=== PATIENT | male | born 1945 | race Caucasian/White ===

== ENCOUNTER 2019-09-01 18:25 | Inpatient (IN) | payer MEDICARE, MEDICAID, SELFPAY ==
[2019-09-01] VITALS (7 sets, daily range): BP systolic 123–164; BP diastolic 66–90; PULSE 66–84; RESP 14–24; TEMP 37.4–37.8; O2SAT 95–99; BMI 24.0
--- NOTE | ~2019-09-01 | US_ITS ---
EXAMINATION:US venous doppler LE INDICATION:Lower extremity swelling and pain. Elevated d-dimer. TECHNIQUE: Multiple grayscale, color flow and Doppler images of the lower extremity deep venous syste ms were obtained and reviewed. COMPARISON:No prior studies for comparison. FINDINGS: The right common femoral, superficial femoral and popliteal veins demonstrate normal respir atory variation, augmentation and compressibility. Color flow is also seen within the posterior tibi al, peroneal, greater saphenous and profunda veins. There is deep venous thrombosis of the left common femoral and profunda femoral veins. IMPRESSION: 1: Deep venous thrombosis of the left common and profunda femoral veins. Dr. Chapo Sage discussed with the patient's nurse on [facility], Tawnya, at 09/04/2019 12:57 CDT. Reviewed, dictated and finalized at location A. IMPRESSION: 1: Deep venous thrombosis of the left common and profunda femoral veins. Dr. Chapo Sage discussed with the patient's nurse on [facility], Steph e, at 09/04/2019 12:57 CDT.
--- NOTE | ~2019-09-01 | CT_ITS ---
EXAMINATION: CT brain wo con DATE: 09/01/2019 19:12 INDICATION: Altered mental status TECHNIQUE: Computed tomography (CT) of the head was performed without intravenous contrast. Sagittal and coronal reconstructions were performed. The mA was adjusted according to patient size. Iterative reconstruction technique was employed. The dose-length product was 681.00 mGy-cm. COMPARISON: None FINDINGS: Postoperative change of prior left frontotemporal craniotomy with plate and screw fixations. Moderate -sized regions of encephalomalacia in the left and right frontal lobes and right cerebellar hemispher e consistent with chronic infarcts. Additional small cortical infarct in the left parietal lobe. Oliverio tional small old lacunar infarcts in the right frontal lobe long radiata and caudate nucleus as wel l as at the central isabel. No acute intracranial hemorrhage, acute infarction or abnormal extra axial fluid collection. There is moderate scattered white matter hypoattenuation consistent with chronic sm all vessel ischemic disease. Symmetric prominence of the sulci and ventricles consistent with mild ag e-appropriate diffuse cerebral volume loss. No mass/mass effect. The orbits, paranasal sinuses and ma stoid air cells are normal. IMPRESSION: 1. No acute intracranial process. 2. Multiple old infarcts including at the bilateral frontal lobes, left parietal lobe, right basal ga nglia, central isabel and right cerebellum. 3. Postoperative change of prior left frontotemporal craniotomy. 4. Age-related changes including mild diffuse volume loss and moderate scattered white matter hypoatt enuation consistent with chronic small vessel ischemic disease. Reviewed, dictated and finalized at location A. IMPRESSION: 1. No acute intracranial process. 2. Multiple old infarcts including at the bilateral frontal lobes, left parieta l lobe, right basal ganglia, central isabel and right cerebellum. 3. Postoperative change of prior left frontotemporal craniotomy. 4. Age-related changes including mild diffuse volume loss and moderate scattere d white matter hypoattenuation consistent with chronic small vessel ischemic di sease.
--- NOTE | ~2019-09-01 | XR_ITS ---
EXAMINATION: XR chest 1V portable DATE: 09/01/2019 19:31 INDICATION: Altered mental status TECHNIQUE: frontal view of the chest was obtained. COMPARISON: None FINDINGS: Mild opacities in the left lower lung zone and the lateral right midlung zone which could represent a telectasis, pneumonia or mild pulmonary edema. No pleural effusion or pneumothorax. Arch size is norm al. Prominent hypertrophic change at the bilateral anterior first ribs. IMPRESSION: 1. Mild opacities in the right mid and left lower lung zones which could represent atelectasis, pneum onia or mild pulmonary edema. Reviewed, dictated and finalized at location A. IMPRESSION: 1. Mild opacities in the right mid and left lower lung zones which could repres ent atelectasis, pneumonia or mild pulmonary edema.
--- NOTE | 2019-09-01 18:40 | ECG_ITS ---
Measurements Intervals [place] Rate: 71 P: 38 [place]: 168 QRS: 18 QRSD: 83 T: 199 QT: 405 QTc: 441 Interpretive Statements SINUS RHYTHM RSR' IN V1 OR V2, CONSIDER RIGHT VENTRICULAR HYPERTROPHY OR RIGHT VCD BASELINE ARTIFACT- I, II, AVR, AVL, AVF, V1-V6 BORDERLINE ECG Electronically Signed On 09-02-2019 6:56:02 CDT by Fernando Garcia D.O.
--- NOTE | 2019-09-01 18:43 | ED.GENADULT ---
HPI - General Adult General Chief complaint: Unspecified Stated complaint: failure to thrive Time Seen by Provider: 09/01/19 18:27 History of Present Illness HPI narrative: Patient is a 74 y/o male sent from [place] for decreased activity, eating less for approximately 1 week. There is no know alleviating or exacerbating factor. Patient usually walks around at the facility, laughs and makes jokes. Patient has been laying in bed most of the time during last few days. Patient is poor historian. He does not know why he is here. He denies any pain, SOB or any other complaint. He states that he feels fine. Related Data Allergies Allergy/AdvReac Type Severity Reaction Status Date / Time Penicillins Allergy Unknown Verified 09/01/19 20:23 Review of Systems Review of Systems: ROS unobtainable: Yes unobtainable due to mental status [facility] Social History Social History Gender identity (if verbalized by the patient): Male Exam Const: General: no acute distress and well developed Orientation/consciousness: oriented to person, oriented to place, oriented to time and patient oriented x3 HENMT: Head: normocephalic Ears: external ears normal General nose exam: Normal external nose present Eyes: General: appearance normal, both eyes and all related structures Conjunctivae: conjunctivae normal Neck: Neck: normal visual inspection and full ROM Chest: Chest palpation & inspection: normal inspection of the chest and no tenderness Resp: Effort & Inspection: normal respiratory effort Auscultation: clear to auscultation bilaterally Cardio: Rate: regular rate Rhythm: regular rhythm GI: GI Palp: No abdominal tenderness and Yes Soft to palpation Skin: General skin exam: normal color and turgor normal Neuro: General: oriented to person and other (disoriented, confused) Cognition (Neuro): abnormal cognition (slow to repsond, but able to follow simple commands) Motor exam (neuro): 5/5 motor strength present throughout Extrem: General: normal to inspection, full ROM and no pedal edema Psych: Appearance: grossly normal Mental Status: mental status grossly normal Affect: normal affect Course Consultations Consultation #1: Discussed with Dr. Zapata, who agrees to admit and recommends starting Rocephin and Zithromax for possible community acquired pneumonia. Date: 09/01/19 Time: 20:30 Vital Signs Vital signs: Vital Signs Temperature 37.6 C H 09/01/19 18:35 Pulse Rate 69 09/01/19 18:35 Respiratory Rate 14 09/01/19 18:35 Blood Pressure 164/79 H 09/01/19 18:35 Pulse Oximetry 99 09/01/19 18:35 Temperature 37.6 C H 09/01/19 18:35 Pulse Rate 84 09/01/19 19:14 Respiratory Rate 14 09/01/19 18:35 Blood Pressure 164/79 H 09/01/19 18:35 Pulse Oximetry 99 09/01/19 18:35 Medical Decision Making Vital Signs Vital Signs: Vital Signs Temperature 37.6 C H 09/01/19 18:35 Pulse Rate 69 09/01/19 18:35 Respiratory Rate 14 09/01/19 18:35 Blood Pressure 164/79 H 09/01/19 18:35 Pulse Oximetry 99 09/01/19 18:35 Temperature 37.6 C H 09/01/19 18:35 Pulse Rate 84 09/01/19 19:14 Respiratory Rate 14 09/01/19 18:35 Blood Pressure 164/79 H 09/01/19 18:35 Pulse Oximetry 99 09/01/19 18:35 Lab Data Result diagrams: 09/01/19 18:59 09/01/19 18:59 Labs: Lab Results 09/01/19 09/01/19 09/01/19 Range/Units 18:59 18:59 19:43 WBC 4.6 (4.5-10.0) K/mm3 RBC 5.25 (4.6-6.20) M/mm3 Hgb 14.8 (14.0-18.0) g/dL Hct 44.4 (42.0-52.0) % MCV 84.6 (80-100) fl MCH 28.2 (26-34) pg MCHC 33.3 (32-36) g/dl RDW 12.2 (11.5-14.5) % Plt Count 192 (150-375) k/mm3 MPV 9.0 (7.4-10.4) fl Immature Gran % (Auto) 0.9 H (0-0.5) % Neut % (Auto) 74.4 H (45.5-73.1) % Lymph % (Auto) 13.9 L (18.3-44.2) % [place] % (Auto) 10.4 H (2.6-8.5) % Eos % (Auto) 0.2 (0-4.4) % Baso %
[2019-09-01 19:06] LABS: Basophils Percent Auto 0.2 % (0.2-1.2); Eosinophils Percent Auto 0.2 % (0-4.4); Hematocrit 44.4 % (42.0-52.0); Hemoglobin 14.8 g/dL (14.0-18.0); Immature Granulocyte Absolute 0.04 K/mm3 (0.00-0.031); Immature Granulocyte Percent A 0.9 % (0-0.5); Lymphocytes Absolute Auto 0.64 K/mm3 (0.9-3.2); Lymphocytes Percent Auto 13.9 % (18.3-44.2); Mean Corpuscular HGB Conc 33.3 g/dl (32-36); Mean Corpuscular Hemoglobin 28.2 pg (26-34); Mean Corpuscular Volume 84.6 fl (80-100); Monocytes Absolute Auto 0.5 K/mm3 (0.1-0.6); Monocytes Percent Auto 10.4 % (2.6-8.5); Neutrophils Absolute Auto 3.4 K/mm3 (1.3-6.7); Neutrophils Percent Auto 74.4 % (45.5-73.1); Platelet Count Result 192 k/mm3 (150-375); Red Blood Count 5.25 M/mm3 (4.6-6.20); Red Cell Distribution Width 12.2 % (11.5-14.5); White Blood Count 4.6 K/mm3 (4.5-10.0)
[2019-09-01 19:18] LABS: Alanine Aminotransferase 19 U/L (4-50); Albumin Level 4.5 g/dL (3.5-5.1); Alkaline Phosphatase 108 U/L (38-126); Aspartate Amino Transferase 33 U/L (17-59); Bilirubin,Total 0.7 mg/dL (0.2-1.3); Blood Urea Nitrogen 17 mg/dL (9-20); Calcium 9.9 mg/dL (8.4-10.2); Carbon Dioxide 26 mmol/L (22-30); Chloride 101 mmol/L (98-107); Estimated Glomerular Filt Rate > 60; Glucose 123 mg/dL (75-110); Sodium 135 mmol/L (137-145)
[2019-09-01 19:55] LABS: Add Urine Microscopic? YES; Amorphous Sediment Urine Few; Appearance Urine Clear (Clear); Bacteria Urine Trace /hpf; Bilirubin Urine Negative (Negative); Blood Urine Negative (Negative); Color Urine Yellow (Yellow); Glucose Urine UA Negative (Negative); Ketones Urine Trace mg/dL (Negative); Leukocyte Esterase Ur Negative LEU/UL (Negative); Mucus Urine Heavy /lpf; Nitrate Urine Negative (Negative); Protein Urine 2+ mg/dL (Negative); RBC Urine 0-2 /hpf (0-2); Squamous Epithelial Cell Urine Rare /hpf (Few)
[2019-09-01 19:56] LABS: Specific Grav Ur 1.033 (1.001-1.035)
[2019-09-01] MEDS: SODIUM CHLORIDE 0.9% IV 1,000 ML 999 ML IV CONT (20:23)
[2019-09-01 20:36] LABS: Lactic Acid Reflex 1.1 mmol/L (0.7-2.1)
[2019-09-01 20:39] LABS: CRP 5.2 mg/dL (<1.0); Lactate Dehydrogenase 505 U/L (313-618)
--- NOTE | 2019-09-01 22:24 | ADMGEN ---
This patient, Elicia Patterson, was admitted to 3 [facility] Surg Room 333-01. Patient/family oriented to hospital policies and general routines including ID bracelet, bed and alarms, visiting hours, pain management, procedures, bathroom and other care routines, personal items, smoking policy, room service/diet, and visiting hours. Valuables list has been completed. Information on how to activate the Rapid Response Team has been discussed. Patient/Family are encouraged to report perceived risks to care and to ask questions if they do not understand what they are told or what they should do.
[2019-09-02] VITALS (15 sets, daily range): BP systolic 127–151; BP diastolic 63–77; PULSE 57–75; RESP 16–20; TEMP 36.4–37.1; O2SAT 92–98; BMI 24.0
--- NOTE | 2019-09-02 06:14 | PM.IMHP ---
H&P: HPI History of Present Illness Chief complaint: Failure to thrive Narrative: Date and time of patient contact: 09/02/2019 at 6:30 a.m. Elicia Patterson is a 74 year old male with a past medical history of CVA, dementia, and prior craniotomy who presented to the ER from [facility] via EMS due to not acting like himself for the past week. The patient had not been eating or drinking very much. The patient was not moving around as much as usual either. The patient usually walks around the facility and laughs and makes jokes with staff. Instead he has been staying in bed for the last few days. The patient only states that he feels ?fine.? The patient was febrile on presentation to the ER with a temperature of 100.1?. The patient denies any cough, congestion, pain, shortness of breath, or other complaints. However the patient is only oriented to person. He thinks that he is around 35 years old. History is limited due to the patient's dementia. Source of information is EMS report and skilled nursing records. Review of Systems Review of Systems: ROS unobtainable: Yes unobtainable due to medical condition and unobtainable due to mental status PMFSH Past Medical History Medical History (Updated 09/02/19 @ 07:52 by Eden Zapata DO) Alcoholism /alcohol abuse Atrial fibrillation CVA (cerebral vascular accident) Dementia Hyperlipidemia Seizure disorder Traumatic brain injury Vitamin D deficiency Surgical History Surgical History (Updated 09/02/19 @ 06:15 by Eden Zapata DO) History of craniotomy Family History Family History (Updated 09/02/19 @ 06:27 by Eden Zapata DO) Other Unknown family medical history Social History Social History (Updated 09/02/19 @ 07:53 by Eden Zapata DO) Smoking status: Former smoker Alcohol intake: former Substance use: unknown Living arrangements: skilled nursing Additional living arrangements comments: [facility] Gender identity (if verbalized by the patient): Male Spiritual care concerns: No Meds Home Medications and Allergies Home Medications Medication Instructions Recorded Confirmed Type aspirin 81 mg PO DAILY 09/01/19 09/01/19 History atorvastatin 20 mg PO HS 09/01/19 09/01/19 History cholecalciferol (vitamin D3) 25 mcg PO DAILY 09/01/19 09/01/19 History [Vitamin D3] donepezil 10 mg PO DAILY 09/01/19 09/01/19 History levetiracetam 250 mg PO QNOON 09/01/19 09/01/19 History levetiracetam 500 mg PO BID 09/01/19 09/01/19 History meloxicam 15 mg PO DAILY 09/01/19 09/01/19 History memantine 10 mg PO BID 09/01/19 09/01/19 History thiamine HCl (vitamin B1) 100 mg PO DAILY 09/01/19 09/01/19 History Allergies Allergy/AdvReac Type Severity Reaction Status Date / Time Penicillins Allergy Unknown Verified 09/01/19 20:23 Vital Signs Vital Signs - 24 hr 09/01/19 18:35 09/01/19 19:14 09/01/19 19:45 Temperature 99.7 F H Pulse Rate 69 84 66 Respiratory Rate 14 24 H Blood Pressure 164/79 H 145/72 H Pulse Oximetry 99 99 09/01/19 21:01 09/01/19 21:40 09/01/19 21:55 Temperature 100.1 F H 99.3 F Pulse Rate 72 67 72 Respiratory Rate 21 H 20 16 Blood Pressure 149/90 H 141/76 H 123/66 Pulse Oximetry 97 95 99 09/01/19 23:00 09/02/19 00:31 09/02/19 01:35 Temperature Pulse Rate 71 Respiratory Rate Blood Pressure Pulse Oximetry 99 98 09/02/19 02:00 09/02/19 04:00 Temperature 98.4 F Pulse Rate 69 70 Respiratory Rate 20 Blood Pressure 137/63 Pulse Oximetry 97 Exam Narrative: Exam Narrative: PHYSICAL EXAM: WEIGHT 76.2 kg BMI 24.1 General: Well-developed well-nourished, no acute distress HEENT: Mucous membranes are moist, further or exam not done as the patient would not cooperate with opening his mouth, evidence of prior skull trauma with irregularity to the frontal portion of the skull with old scarring, nares patent, pupils are equal and reactive
[2019-09-02 06:44] LABS: Hematocrit 39.9 % (42.0-52.0); Hemoglobin 13.1 g/dL (14.0-18.0); Mean Corpuscular HGB Conc 32.8 g/dl (32-36); Mean Corpuscular Hemoglobin 28.1 pg (26-34); Mean Corpuscular Volume 85.4 fl (80-100); Platelet Count Result 185 k/mm3 (150-375); Red Blood Count 4.67 M/mm3 (4.6-6.20); Red Cell Distribution Width 12.1 % (11.5-14.5); White Blood Count 4.4 K/mm3 (4.5-10.0)
[2019-09-02 06:59] LABS: Blood Urea Nitrogen 12 mg/dL (9-20); Calcium 9.1 mg/dL (8.4-10.2); Carbon Dioxide 28 mmol/L (22-30); Chloride 103 mmol/L (98-107); Estimated CRCL calculation 67 ml/min; Estimated Glomerular Filt Rate > 60; Glucose 96 mg/dL (75-110); Potassium 3.8 mmol/L (3.4-5.0); Sodium 136 mmol/L (137-145)
[2019-09-02] MEDS: ASPIRIN 81 MG CHEWABLE TABLET PO (08:01)
[2019-09-02] MEDS: levETIRAcetam 500 MG TABLET PO ×2 (08:01→17:22)
[2019-09-02] MEDS: MEMANTINE 10 MG TABLET PO ×2 (08:01→17:22)
[2019-09-02] MEDS: MELOXICAM 7.5 MG TABLET 15 MG PO (08:02)
[2019-09-02] MEDS: ENOXAPARIN 40 MG/0.4 ML SYRINGE SUB-Q (08:02)
[2019-09-02] MEDS: THIAMINE HCL 100 MG TABLET PO (08:03)
[2019-09-02] MEDS: levETIRAcetam 250 MG TABLET PO (11:40)
[2019-09-02 12:46] LABS: SARS-CoV-2 RNA PCR Positive
--- NOTE | 2019-09-02 13:23 | PM.IMPN ---
Progress Note: A&P Assessment and Plan (1) Pneumonia: Qualifiers: Laterality: bilateral Lung location: unspecified part of lung Pneumonia type: due to unspecified organism Qualified Code(s): J18.9 - Pneumonia, unspecified organism Code(s): J18.9 - Pneumonia, unspecified organism Status: Acute Assessment and Plan: COVID testing came back positive today. Likely pneumonia is viral (COVID) in nature with less likely bacterial co-infection. Patient is currently satting in upper 90s on RA. Afebrile since yesterday evening. VSS. BCx pending. Urine Legionella and pneumococcal antigen. Since COVID testing positive, bacterial co-infection unlikely, will stop azithromycin and rocephin Supportive care with Tylenol and Mucinex O2 if needed Will monitor and consider discharge in 1-2 days if continued to be stable (2) COVID-19 virus infection: Code(s): U07.1 - COVID-19 Status: Acute Assessment and Plan: Covid positive. please see above a/p (3) Altered mental status: Qualifiers: Altered mental status type: unspecified Qualified Code(s): R41.82 - Altered mental status, unspecified Code(s): R41.82 - Altered mental status, unspecified Status: Acute Assessment and Plan: Encephalopathy complicating underlying dementia. Likely due to acute infection. Will treat underlying infection with supportive care as above and continue to monitor Will do PT/OT tomorrow Encourage PO intake (4) CVA (cerebral vascular accident): Code(s): I63.9 - Cerebral infarction, unspecified Status: Acute Assessment and Plan: H/o CVA. Continue ASA PT/OT during stay (5) Seizure disorder: Code(s): G40.909 - Epilepsy, unspecified, not intractable, without status epilepticus Status: Acute Assessment and Plan: No acute issues Continue home Keppra (6) Dementia: Code(s): F03.90 - Unspecified dementia without behavioral disturbance Status: Acute Assessment and Plan: Will continue with memantine Hold Donepezil for now, will continue if mental status improves (7) Hyperlipidemia: Code(s): E78.5 - Hyperlipidemia, unspecified Status: Acute Assessment and Plan: LFTs WNL will resume statin Subjective Date/time seen: 09/02/19 13:23 Interval history: Patient is a 74 yo M with history of CVA, dementia, and prior craniotomy who is here for treatment of PNA/Covid infection. Patient is poor historian. For me he is awake, but only nods his head yes/no to questions. He refuses to answer orientation questions for me. Having said that, when questioned, he reports lack of appetite, and denies f/c/s, headaches, dizziness, lightheadedness, cp/palpitations, sob/cough, n/v, abd pain, dysuria, hematuria, cloudy urine, calf pain/swelling. Review of Systems Review of Systems: ROS unobtainable: Yes unobtainable due to medical condition and unobtainable due to mental status Exam Narrative: Exam Narrative: Patient is lying in semi-davis's position at time of visit. Watching tv with lunch sitting in front of him Const: General: cooperative, comfortable, no acute distress, well developed, alert, tired appearing and other (Withdrawn) Nutritional Appearance: well nourished HENMT: Head: atraumatic General nose exam: Normal nares present Face and sinus: face symmetric Eyes: General: appearance normal, both eyes and all related structures EOM: EOMs intact bilaterally Neck: Neck: trachea midline and supple Resp: Effort & Inspection: normal respiratory effort Auscultation: crackles on the right at the base Cardio: Rate: regular rate Rhythm: regular rhythm Heart
[2019-09-02] MEDS: ATORVASTATIN 20 MG TABLET PO (20:34)
[2019-09-03] VITALS (9 sets, daily range): BP systolic 115–157; BP diastolic 59–82; PULSE 51–75; RESP 16–18; TEMP 36.6–37.4; O2SAT 94–97
[2019-09-03 06:21] LABS: Hematocrit 37.6 % (42.0-52.0); Hemoglobin 12.6 g/dL (14.0-18.0); Immature Granulocyte Absolute 0.03 K/mm3 (0.00-0.031); Immature Granulocyte Percent A 0.6 % (0-0.5); Lymphocytes Percent Auto 13.8 % (18.3-44.2); Mean Corpuscular HGB Conc 33.5 g/dl (32-36); Mean Corpuscular Hemoglobin 27.6 pg (26-34); Mean Corpuscular Volume 82.3 fl (80-100); Mean Platelet Volume 8.9 fl (7.4-10.4); Monocytes Absolute Auto 0.4 K/mm3 (0.1-0.6); Monocytes Percent Auto 8.1 % (2.6-8.5); Neutrophils Absolute Auto 3.9 K/mm3 (1.3-6.7); Neutrophils Percent Auto 77.5 % (45.5-73.1); Platelet Count Result 193 k/mm3 (150-375); Red Blood Count 4.57 M/mm3 (4.6-6.20); Red Cell Distribution Width 11.7 % (11.5-14.5); White Blood Count 5.1 K/mm3 (4.5-10.0)
[2019-09-03 06:38] LABS: INR 1.1; Prothrombin Time 14.2 Seconds (11.1-14.7)
[2019-09-03 06:41] LABS: D Dimer 2.32 ug/mL (<0.48); Potassium 3.8 mmol/L (3.4-5.0)
[2019-09-03 06:45] LABS: Alanine Aminotransferase 15 U/L (4-50); Albumin Level 3.7 g/dL (3.5-5.1); Alkaline Phosphatase 93 U/L (38-126); Aspartate Amino Transferase 26 U/L (17-59); Bilirubin,Total 0.6 mg/dL (0.2-1.3); Blood Urea Nitrogen 12 mg/dL (9-20); CRP 7.8 mg/dL (<1.0); Calcium 9.3 mg/dL (8.4-10.2); Carbon Dioxide 26 mmol/L (22-30); Chloride 100 mmol/L (98-107); Estimated CRCL calculation 75 ml/min; Estimated Glomerular Filt Rate > 60; Glucose 108 mg/dL (75-110); Lactate Dehydrogenase 550 U/L (313-618); Magnesium 2.1 mg/dL (1.6-2.3); Sodium 133 mmol/L (137-145)
[2019-09-03] MEDS: MEMANTINE 10 MG TABLET PO ×2 (08:35→17:37)
[2019-09-03] MEDS: THIAMINE HCL 100 MG TABLET PO (08:35)
[2019-09-03] MEDS: ASPIRIN 81 MG CHEWABLE TABLET PO (08:35)
[2019-09-03] MEDS: levETIRAcetam 500 MG TABLET PO ×2 (08:36→17:38)
[2019-09-03] MEDS: CHOLECALCIFEROL 1,000 UNIT TABLET 1000 UNITS PO (08:37)
[2019-09-03] MEDS: levETIRAcetam 250 MG TABLET PO (11:33)
--- NOTE | 2019-09-03 12:30 | PM.IMPN ---
Progress Note: A&P Assessment and Plan (1) Pneumonia: Qualifiers: Laterality: bilateral Lung location: unspecified part of lung Pneumonia type: due to unspecified organism Qualified Code(s): J18.9 - Pneumonia, unspecified organism Code(s): J18.9 - Pneumonia, unspecified organism Status: Acute Assessment and Plan: COVID testing positive. Likely pneumonia is viral (COVID) in nature with less likely bacterial co-infection. Patient is currently satting in mid 90s on RA. Afebrile since presentation. VSS. BCx negative to date. Urine Legionella and pneumococcal antigen pending. Patient much more alert/active today, eating more today, working with PT/OT Since COVID testing positive, bacterial co-infection unlikely, will continue to hold antibiotic therapy Supportive care with Tylenol and Mucinex O2 if needed Will monitor and consider discharge possibly tomorrow if continued to be stable and adequate PO intake (2) COVID-19 virus infection: Code(s): U07.1 - COVID-19 Status: Acute Assessment and Plan: Covid positive. please see above a/p (3) Altered mental status: Qualifiers: Altered mental status type: unspecified Qualified Code(s): R41.82 - Altered mental status, unspecified Code(s): R41.82 - Altered mental status, unspecified Status: Acute Assessment and Plan: Encephalopathy complicating underlying dementia. Likely due to acute infection. Appears to have improved/resolved Will treat underlying infection with supportive care as above and continue to monitor Continue PT/OT Encourage PO intake (4) CVA (cerebral vascular accident): Code(s): I63.9 - Cerebral infarction, unspecified Status: Acute Assessment and Plan: H/o CVA. Continue ASA PT/OT during stay (5) Seizure disorder: Code(s): G40.909 - Epilepsy, unspecified, not intractable, without status epilepticus Status: Acute Assessment and Plan: No acute issues Continue home Keppra (6) Dementia: Code(s): F03.90 - Unspecified dementia without behavioral disturbance Status: Acute Assessment and Plan: Will continue with memantine Hold Donepezil for now, likely resume tomorrow (7) Hyperlipidemia: Code(s): E78.5 - Hyperlipidemia, unspecified Status: Acute Assessment and Plan: LFTs WNL will resume statin Subjective Date/time seen: 09/03/19 12:30 Interval history: Patient is a 74 yo M with history of CVA, dementia, and prior craniotomy who is here for treatment of PNA/Covid infection. Patient is a poor to fair historian. Today, he is alert and oriented to himself, year, and that he is in the hospital. He is more talkative today, but still predominantly answers yes/no questions. He tells me he is feeling better today, he is eating more. No BMs, but declines a laxative at the moment. He denies f/c/s, cp/palpitations, sob/cough, n/v, abd pain, dysuria, hematuria, cloudy urine, calf pain/swelling. Review of Systems Review of Systems: All systems reviewed & are unremarkable except as noted in HPI and below (limited due to mental status/medical condition; see above) Exam Narrative: Exam Narrative: Patient is sitting upright in chair at time of visit Const: General: cooperative, comfortable, no acute distress, well developed and alert Nutritional Appearance: well nourished Orientation/consciousness: patient oriented x3 (person, hospital, year) [facility]: Head: atraumatic General nose exam: Normal nares present Face and sinus: face symmetric Eyes: General: appearance normal, both eyes and all related structures EOM: EOMs intact bilaterally Neck: Neck: trac
[2019-09-03] MEDS: ENOXAPARIN 30 MG/0.3 ML SYRINGE SUB-Q ×2 (17:37→20:29)
[2019-09-03] MEDS: ATORVASTATIN 20 MG TABLET PO (20:28)
[2019-09-04 02:00] VITALS: BP 110/62; PULSE 69; RESP 16; TEMP 36.7; O2SAT 95
[2019-09-04 06:00] VITALS: BP 147/80; PULSE 63; RESP 16; TEMP 37; O2SAT 96
[2019-09-04 06:47] LABS: Basophils Percent Auto 0.2 % (0.2-1.2); Eosinophils Absolute Auto 0.1 K/mm3 (0-0.3); Hematocrit 39.9 % (42.0-52.0); Hemoglobin 13.3 g/dL (14.0-18.0); Immature Granulocyte Absolute 0.02 K/mm3 (0.00-0.031); Immature Granulocyte Percent A 0.4 % (0-0.5); Lymphocytes Absolute Auto 1.03 K/mm3 (0.9-3.2); Lymphocytes Percent Auto 21.5 % (18.3-44.2); Mean Corpuscular HGB Conc 33.3 g/dl (32-36); Mean Platelet Volume 8.9 fl (7.4-10.4); Monocytes Absolute Auto 0.5 K/mm3 (0.1-0.6); Monocytes Percent Auto 9.8 % (2.6-8.5); Neutrophils Absolute Auto 3.2 K/mm3 (1.3-6.7); Neutrophils Percent Auto 67.1 % (45.5-73.1); Platelet Count Result 225 k/mm3 (150-375); Red Blood Count 4.75 M/mm3 (4.6-6.20); Red Cell Distribution Width 11.9 % (11.5-14.5); White Blood Count 4.8 K/mm3 (4.5-10.0)
[2019-09-04 07:02] LABS: Alanine Aminotransferase 15 U/L (4-50); Albumin Level 3.8 g/dL (3.5-5.1); Alkaline Phosphatase 90 U/L (38-126); Aspartate Amino Transferase 25 U/L (17-59); Bilirubin,Total 0.7 mg/dL (0.2-1.3); Blood Urea Nitrogen 15 mg/dL (9-20); Calcium 9.6 mg/dL (8.4-10.2); Carbon Dioxide 28 mmol/L (22-30); Chloride 100 mmol/L (98-107); Estimated CRCL calculation 67 ml/min; Estimated Glomerular Filt Rate > 60; Glucose 98 mg/dL (75-110); Lactate Dehydrogenase 523 U/L (313-618); Potassium 3.3 mmol/L (3.4-5.0); Sodium 133 mmol/L (137-145)
[2019-09-04] MEDS: ASPIRIN 81 MG CHEWABLE TABLET PO (08:54)
[2019-09-04] MEDS: CHOLECALCIFEROL 1,000 UNIT TABLET 1000 UNITS PO (08:54)
[2019-09-04] MEDS: MEMANTINE 10 MG TABLET PO ×2 (08:55→16:50)
[2019-09-04] MEDS: levETIRAcetam 500 MG TABLET PO ×2 (08:55→16:50)
[2019-09-04] MEDS: THIAMINE HCL 100 MG TABLET PO (08:56)
[2019-09-04] MEDS: ENOXAPARIN 30 MG/0.3 ML SYRINGE SUB-Q (08:56)
[2019-09-04 10:00] VITALS: BP 141/89; PULSE 70; RESP 18; TEMP 36.8; O2SAT 95
--- NOTE | 2019-09-04 11:08 | P.DS_ITS ---
DS: Admitting Diagnosis Admitting Diagnosis Admitting Diagnosis: COVID-19 DS: Discharge Diagnosis Discharge Diagnosis (1) Pneumonia: Qualifiers: Laterality: bilateral Lung location: unspecified part of lung Pneumonia type: due to unspecified organism Qualified Code(s): J18.9 - Pneumo steph, unspecified organism Code(s): J18.9 - Pneumonia, unspecified organism Status: Acute Assessment and Plan: COVID testing positive. Likely pneumonia is viral (COVID) in nature with less likely bacterial co-infection. Patient is currently satting in mid 90s on RA. Afebrile since presentation. VSS. BCx negative to date. Urine Legionella and pneumococcal antigen pending. Patient much more alert/active today, eating more today, working with PT/OT * Since COVID testing positive, bacterial co-infection unlikely, will continue to hold antibiotic therapy * Supportive care with Tylenol and Mucinex * D/c today to [facility] (2) COVID-19 virus infection: Code(s): U07.1 - COVID-19 Status: Acute Assessment and Plan: Covid positive. please see above a/p (3) Dvt femoral (deep venous thrombosis): Code(s): I82.419 - Acute embolism and thrombosis of unspecified femoral vein Status: Acute Assessment and Plan: DVT found on left femoral, profunda veins. * Stop Lovenox 30 mg BID * Start Xarelto therapeutic dose of 15 mg BID x 21 days and then 20 mg every evening thereafter * Further care per [place] physician * d/c today (4) Altered mental status: Qualifiers: Altered mental status type: unspecified Qualified Code(s): R41.82 - Altered mental status, unspecified Code(s): R41.82 - Altered mental status, unspecified Status: Acute Assessment and Plan: Encephalopathy complicating underlying dementia. Likely due to acute infection. Appears to have improved/resolved * Will treat underlying infection with supportive care as above and continue to monitor * Continue PT/OT * Encourage PO intake * D/c today (5) CVA (cerebral vascular accident): Code(s): I63.9 - Cerebral infarction, unspecified Status: Acute Assessment and Plan: H/o CVA. * Continue ASA * PT/OT during stay (6) Seizure disorder: Code(s): G40.909 - Epilepsy, unspecified, not intractable, without status epilepticus Status: Acute Assessment and Plan: No acute issues * Continue home Keppra (7) Dementia: Code(s): F03.90 - Unspecified dementia without behavioral disturbance Status: Acute Assessment and Plan: * Will continue with memantine * Hold Donepezil for now, likely resume at discharge (8) Hyperlipidemia: Code(s): E78.5 - Hyperlipidemia, unspecified Status: Acute Assessment and Plan: LFTs WNL * will continue statin DS: Summary Time Spent with Patient Time attestation: Total time spent providing and/or coordinating discharge services: Exam Narrative: Exam Narrative: Patient is sitting upright in bed at time of visit Const: General: cooperative, comfortable, no acute distress, well developed and alert Nutritional Appearance: well nourished Orientation/consciousness: patient bernice
--- NOTE | 2019-09-04 11:08 | PM.DS ---
DS: Admitting Diagnosis Admitting Diagnosis Admitting Diagnosis: COVID-19 DS: Discharge Diagnosis Discharge Diagnosis (1) Pneumonia: Qualifiers: Laterality: bilateral Lung location: unspecified part of lung Pneumonia type: due to unspecified organism Qualified Code(s): J18.9 - Pneumonia, unspecified organism Code(s): J18.9 - Pneumonia, unspecified organism Status: Acute Assessment and Plan: COVID testing positive. Likely pneumonia is viral (COVID) in nature with less likely bacterial co-infection. Patient is currently satting in mid 90s on RA. Afebrile since presentation. VSS. BCx negative to date. Urine Legionella and pneumococcal antigen pending. Patient much more alert/active today, eating more today, working with PT/OT Since COVID testing positive, bacterial co-infection unlikely, will continue to hold antibiotic therapy Supportive care with Tylenol and Mucinex D/c today to [facility] (2) COVID-19 virus infection: Code(s): U07.1 - COVID-19 Status: Acute Assessment and Plan: Covid positive. please see above a/p (3) Dvt femoral (deep venous thrombosis): Code(s): I82.419 - Acute embolism and thrombosis of unspecified femoral vein Status: Acute Assessment and Plan: DVT found on left femoral, profunda veins. Stop Lovenox 30 mg BID Start Xarelto therapeutic dose of 15 mg BID x 21 days and then 20 mg every evening thereafter Further care per [place] physician d/c today (4) Altered mental status: Qualifiers: Altered mental status type: unspecified Qualified Code(s): R41.82 - Altered mental status, unspecified Code(s): R41.82 - Altered mental status, unspecified Status: Acute Assessment and Plan: Encephalopathy complicating underlying dementia. Likely due to acute infection. Appears to have improved/resolved Will treat underlying infection with supportive care as above and continue to monitor Continue PT/OT Encourage PO intake D/c today (5) CVA (cerebral vascular accident): Code(s): I63.9 - Cerebral infarction, unspecified Status: Acute Assessment and Plan: H/o CVA. Continue ASA PT/OT during stay (6) Seizure disorder: Code(s): G40.909 - Epilepsy, unspecified, not intractable, without status epilepticus Status: Acute Assessment and Plan: No acute issues Continue home Keppra (7) Dementia: Code(s): F03.90 - Unspecified dementia without behavioral disturbance Status: Acute Assessment and Plan: Will continue with memantine Hold Donepezil for now, likely resume at discharge (8) Hyperlipidemia: Code(s): E78.5 - Hyperlipidemia, unspecified Status: Acute Assessment and Plan: LFTs WNL will continue statin DS: Summary Time Spent with Patient Time attestation: Total time spent providing and/or coordinating discharge services: Exam Narrative: Exam Narrative: Patient is sitting upright in bed at time of visit Const: General: cooperative, comfortable, no acute distress, well developed and alert Nutritional Appearance: well nourished Orientation/consciousness: patient oriented x3 (person, hospital, year) HENMT: Head: atraumatic General nose exam: Normal nares present Face and sinus: face symmetric Eyes: General: appearance normal, both eyes and all related structures EOM: EOMs intact bilaterally Neck: Neck: trachea midline and supple Resp: Effort & Inspection: normal respiratory effort Auscultation: clear to auscultation bilaterally Cardio: Rate: regular rate Rhythm: regular rhythm Heart sounds: no murmurs GI:
[2019-09-04] MEDS: POTASSIUM CHLORIDE 20 MEQ TABLET 40 MEQ PO (12:59)
[2019-09-04] MEDS: levETIRAcetam 250 MG TABLET PO (12:59)
[2019-09-04 14:00] VITALS: BP 136/81; PULSE 81; RESP 18; TEMP 36.8; O2SAT 95
--- NOTE | 2019-09-04 14:43 | P.PNIM_ITS ---
Progress Note: A&P Assessment and Plan (1) Pneumonia: Qualifiers: Laterality: bilateral Lung location: unspecified part of lung Pneumonia type: due to unspecified organism Qualified Code(s): J18.9 - Pneumonia, unspecified organism Code(s): J18.9 - Pneumonia, unspecified organism Status: Acute Assessment and Plan: COVID testing positive. Likely pneumonia is viral (COVID) in nature with less likely bacterial co-infection. Patient is currently satting in mid 90s on RA. Afebrile since presentation. VSS. BCx negative to date. Urine Legionella and pneumococcal antigen pending. Patient much more alert/active today, eating more today, working with PT/OT * Since COVID testing positive, bacterial co-infection unlikely, will continue to hold antibiotic therapy * Supportive care with Tylenol and Mucinex * Continue to monitor * O2 as needed * PT/OT * Encourage PO intake (2) COVID-19 virus infection: Code(s): U07.1 - COVID-19 Status: Acute Assessment and Plan: Covid positive. please see above a/p (3) Dvt femoral (deep venous thrombosis): Code(s): I82.419 - Acute embolism and thrombosis of unspecified femoral vein Status: Acute Assessment and Plan: DVT found on left femoral, profunda veins. * Stop Lovenox 30 mg BID * Start Xarelto therapeutic dose of 15 mg BID x 21 days and then 20 mg every evening thereafter * Further care per [place] physician * Monitor for s/sx of bleeding (4) Altered mental status: Qualifiers: Altered mental status type: unspecified Qualified Code(s): R41.82 - Altered mental status, unspecified Code(s): R41.82 - Altered mental status, unspecified Status: Acute Assessment and Plan: Encephalopathy complicating underlying dementia. Likely due to acute infection. Appears to have improved/resolved * Will treat underlying infection with supportive care as above and continue to monitor * Continue PT/OT * Encourage PO intake (5) CVA (cerebral vascular accident): Code(s): I63.9 - Cerebral infarction, unspecified Status: Acute Assessment and Plan: H/o CVA. * Continue ASA * PT/OT during stay (6) Seizure disorder: Code(s): G40.909 - Epilepsy, unspecified, not intractable, without status epilepticus Status: Acute Assessment and Plan: No acute issues * Continue home Keppra (7) Dementia: Code(s): F03.90 - Unspecified dementia without behavioral disturbance Status: Acute Assessment and Plan: * Will continue with memantine * Hold Donepezil for now, likely resume tomorrow (8) Hyperlipidemia: Code(s): E78.5 - Hyperlipidemia, unspecified Status: Acute Assessment and Plan: LFTs WNL * will continue statin (9) Discharge planning issues: Code(s): Z02.9 - Encounter for administrative examinations, unspecified Status: Acute Assessment and Plan: CC states NH facility is unable to obtain patient's home medications over the weekend, thus will need to stay until Friday once they are able to access the pharmacy and obtain patient's medications. CC following * Await further instructions from CC Subjective Date/time seen
--- NOTE | 2019-09-04 14:43 | PM.IMPN ---
Progress Note: A&P Assessment and Plan (1) Pneumonia: Qualifiers: Laterality: bilateral Lung location: unspecified part of lung Pneumonia type: due to unspecified organism Qualified Code(s): J18.9 - Pneumonia, unspecified organism Code(s): J18.9 - Pneumonia, unspecified organism Status: Acute Assessment and Plan: COVID testing positive. Likely pneumonia is viral (COVID) in nature with less likely bacterial co-infection. Patient is currently satting in mid 90s on RA. Afebrile since presentation. VSS. BCx negative to date. Urine Legionella and pneumococcal antigen pending. Patient much more alert/active today, eating more today, working with PT/OT Since COVID testing positive, bacterial co-infection unlikely, will continue to hold antibiotic therapy Supportive care with Tylenol and Mucinex Continue to monitor O2 as needed PT/OT Encourage PO intake (2) COVID-19 virus infection: Code(s): U07.1 - COVID-19 Status: Acute Assessment and Plan: Covid positive. please see above a/p (3) Dvt femoral (deep venous thrombosis): Code(s): I82.419 - Acute embolism and thrombosis of unspecified femoral vein Status: Acute Assessment and Plan: DVT found on left femoral, profunda veins. Stop Lovenox 30 mg BID Start Xarelto therapeutic dose of 15 mg BID x 21 days and then 20 mg every evening thereafter Further care per [place] physician Monitor for s/sx of bleeding (4) Altered mental status: Qualifiers: Altered mental status type: unspecified Qualified Code(s): R41.82 - Altered mental status, unspecified Code(s): R41.82 - Altered mental status, unspecified Status: Acute Assessment and Plan: Encephalopathy complicating underlying dementia. Likely due to acute infection. Appears to have improved/resolved Will treat underlying infection with supportive care as above and continue to monitor Continue PT/OT Encourage PO intake (5) CVA (cerebral vascular accident): Code(s): I63.9 - Cerebral infarction, unspecified Status: Acute Assessment and Plan: H/o CVA. Continue ASA PT/OT during stay (6) Seizure disorder: Code(s): G40.909 - Epilepsy, unspecified, not intractable, without status epilepticus Status: Acute Assessment and Plan: No acute issues Continue home Keppra (7) Dementia: Code(s): F03.90 - Unspecified dementia without behavioral disturbance Status: Acute Assessment and Plan: Will continue with memantine Hold Donepezil for now, likely resume tomorrow (8) Hyperlipidemia: Code(s): E78.5 - Hyperlipidemia, unspecified Status: Acute Assessment and Plan: LFTs WNL will continue statin (9) Discharge planning issues: Code(s): Z02.9 - Encounter for administrative examinations, unspecified Status: Acute Assessment and Plan: CC states NH facility is unable to obtain patient's home medications over the weekend, thus will need to stay until Friday once they are able to access the pharmacy and obtain patient's medications. CC following Await further instructions from CC Subjective Date/time seen: 09/04/19 14:43 Interval history: Patient is a 74 yo M with history of CVA, dementia, and prior craniotomy who is here for treatment of PNA/Covid infection. Patient is a poor to fair historian. Today, he is alert and oriented to himself, year, and that he is in the hospital. He is more talkative today, but still predominantly answers yes/no questions. He tells me he is feeling better today, he is eating more. No BMs, but
[2019-09-04] MEDS: RIVAROXABAN 15 MG TABLET PO (16:50)
[2019-09-04 18:00] VITALS: BP 161/90; PULSE 66; RESP 18; TEMP 36.7; O2SAT 96
[2019-09-04] MEDS: ATORVASTATIN 20 MG TABLET PO (20:39)
[2019-09-04 22:13] VITALS: BP 142/84; PULSE 68; RESP 18; TEMP 37.2; O2SAT 98
[2019-09-05 02:16] VITALS: BP 144/82; PULSE 67; RESP 18; TEMP 37.6; O2SAT 96
[2019-09-05 06:11] VITALS: BP 112/60; PULSE 72; RESP 16; TEMP 37; O2SAT 94
[2019-09-05 07:04] LABS: Basophils Percent Auto 0.2 % (0.2-1.2); Eosinophils Absolute Auto 0.1 K/mm3 (0-0.3); Eosinophils Percent Auto 1.1 % (0-4.4); Hematocrit 38.2 % (42.0-52.0); Hemoglobin 12.8 g/dL (14.0-18.0); Immature Granulocyte Absolute 0.03 K/mm3 (0.00-0.031); Immature Granulocyte Percent A 0.5 % (0-0.5); Lymphocytes Absolute Auto 1.07 K/mm3 (0.9-3.2); Lymphocytes Percent Auto 18.9 % (18.3-44.2); Mean Corpuscular HGB Conc 33.5 g/dl (32-36); Mean Corpuscular Hemoglobin 27.8 pg (26-34); Mean Platelet Volume 8.6 fl (7.4-10.4); Monocytes Absolute Auto 0.5 K/mm3 (0.1-0.6); Monocytes Percent Auto 9.2 % (2.6-8.5); Neutrophils Percent Auto 70.1 % (45.5-73.1); Platelet Count Result 253 k/mm3 (150-375); Red Cell Distribution Width 11.8 % (11.5-14.5); White Blood Count 5.7 K/mm3 (4.5-10.0)
[2019-09-05 07:14] LABS: Potassium 4.1 mmol/L (3.4-5.0)
[2019-09-05 07:18] LABS: Alanine Aminotransferase 15 U/L (4-50); Albumin Level 3.7 g/dL (3.5-5.1); Alkaline Phosphatase 94 U/L (38-126); Aspartate Amino Transferase 23 U/L (17-59); Bilirubin,Total 0.9 mg/dL (0.2-1.3); Blood Urea Nitrogen 12 mg/dL (9-20); CRP 6.3 mg/dL (<1.0); Calcium 9.5 mg/dL (8.4-10.2); Carbon Dioxide 27 mmol/L (22-30); Chloride 100 mmol/L (98-107); Estimated CRCL calculation 67 ml/min; Estimated Glomerular Filt Rate > 60; Glucose 100 mg/dL (75-110); Magnesium 2.1 mg/dL (1.6-2.3); Sodium 132 mmol/L (137-145)
[2019-09-05] MEDS: levETIRAcetam 500 MG TABLET PO ×2 (08:45→17:30)
[2019-09-05] MEDS: RIVAROXABAN 15 MG TABLET PO ×2 (08:45→17:30)
[2019-09-05] MEDS: DONEPEZIL HCL 10 MG TABLET PO (08:45)
[2019-09-05] MEDS: THIAMINE HCL 100 MG TABLET PO (08:45)
[2019-09-05] MEDS: MEMANTINE 10 MG TABLET PO ×2 (08:45→17:30)
[2019-09-05] MEDS: CHOLECALCIFEROL 1,000 UNIT TABLET 1000 UNITS PO (08:46)
[2019-09-05] MEDS: ASPIRIN 81 MG CHEWABLE TABLET PO (08:46)
[2019-09-05 10:00] VITALS: BP 136/69; PULSE 70; RESP 18; TEMP 37.3; O2SAT 94
--- NOTE | 2019-09-05 12:36 | P.PNIM_ITS ---
Progress Note: A&P Assessment and Plan (1) Pneumonia: Qualifiers: Laterality: bilateral Lung location: unspecified part of lung Pneumonia type: due to unspecified organism Qualified Code(s): J18.9 - Pneumonia, unspecified organism Code(s): J18.9 - Pneumonia, unspecified organism Status: Acute Assessment and Plan: COVID testing positive. Likely pneumonia is viral (COVID) in nature with less likely bacterial co-infection. Patient is currently satting in mid 90s on RA. Mild fever overnight of 99.7;VSS. BCx negative to date. Urine Legionella and pneumococcal antigen pending. Patient much more alert/active today, eating more today, working with PT/OT * Since COVID testing positive, bacterial co-infection unlikely, will continue to hold antibiotic therapy * Supportive care with Tylenol and Mucinex * Continue to monitor * O2 as needed * PT/OT * Encourage PO intake * D/c to [facility] once facility able to accept patient; see below (2) COVID-19 virus infection: Code(s): U07.1 - COVID-19 Status: Acute Assessment and Plan: Covid positive. please see above a/p (3) Dvt femoral (deep venous thrombosis): Code(s): I82.419 - Acute embolism and thrombosis of unspecified femoral vein Status: Acute Assessment and Plan: DVT found on left femoral, profunda veins. * Conitue Xarelto therapeutic dose of 15 mg BID x 21 days (through 09/23) and then 20 mg every evening thereafter (start 09/24) * Further care per [place] physician (4) Altered mental status: Qualifiers: Altered mental status type: unspecified Qualified Code(s): R41.82 - Altered mental status, unspecified Code(s): R41.82 - Altered mental status, unspecified Status: Acute Assessment and Plan: Encephalopathy complicating underlying dementia. Likely due to acute infection. Appears to have improved/resolved * Will treat underlying infection with supportive care as above and continue to monitor * Continue PT/OT * Encourage PO intake (5) CVA (cerebral vascular accident): Code(s): I63.9 - Cerebral infarction, unspecified Status: Acute Assessment and Plan: H/o CVA. * Continue ASA * PT/OT during stay (6) Seizure disorder: Code(s): G40.909 - Epilepsy, unspecified, not intractable, without status epilepticus Status: Acute Assessment and Plan: No acute issues * Continue home Keppra (7) Dementia: Code(s): F03.90 - Unspecified dementia without behavioral disturbance Status: Acute Assessment and Plan: * Will continue with memantine * Resumed Donepezil today (8) Hyperlipidemia: Code(s): E78.5 - Hyperlipidemia, unspecified Status: Acute Assessment and Plan: LFTs WNL * will continue statin (9) Discharge planning issues: Code(s): Z02.9 - Encounter for administrative examinations, unspecified Status: Acute Assessment and Plan: CC states NH facility is unable to obtain patient's home medications over the weekend, thus will need to stay until Friday once they are able to access the pharmacy and obtain patient's medications. CC following * Await further instructions from CC
--- NOTE | 2019-09-05 12:36 | PM.IMPN ---
Progress Note: A&P Assessment and Plan (1) Pneumonia: Qualifiers: Laterality: bilateral Lung location: unspecified part of lung Pneumonia type: due to unspecified organism Qualified Code(s): J18.9 - Pneumonia, unspecified organism Code(s): J18.9 - Pneumonia, unspecified organism Status: Acute Assessment and Plan: COVID testing positive. Likely pneumonia is viral (COVID) in nature with less likely bacterial co-infection. Patient is currently satting in mid 90s on RA. Mild fever overnight of 99.7;VSS. BCx negative to date. Urine Legionella and pneumococcal antigen pending. Patient much more alert/active today, eating more today, working with PT/OT Since COVID testing positive, bacterial co-infection unlikely, will continue to hold antibiotic therapy Supportive care with Tylenol and Mucinex Continue to monitor O2 as needed PT/OT Encourage PO intake D/c to [facility] once facility able to accept patient; see below (2) COVID-19 virus infection: Code(s): U07.1 - COVID-19 Status: Acute Assessment and Plan: Covid positive. please see above a/p (3) Dvt femoral (deep venous thrombosis): Code(s): I82.419 - Acute embolism and thrombosis of unspecified femoral vein Status: Acute Assessment and Plan: DVT found on left femoral, profunda veins. Conitue Xarelto therapeutic dose of 15 mg BID x 21 days (through 09/23) and then 20 mg every evening thereafter (start 09/24) Further care per [place] physician (4) Altered mental status: Qualifiers: Altered mental status type: unspecified Qualified Code(s): R41.82 - Altered mental status, unspecified Code(s): R41.82 - Altered mental status, unspecified Status: Acute Assessment and Plan: Encephalopathy complicating underlying dementia. Likely due to acute infection. Appears to have improved/resolved Will treat underlying infection with supportive care as above and continue to monitor Continue PT/OT Encourage PO intake (5) CVA (cerebral vascular accident): Code(s): I63.9 - Cerebral infarction, unspecified Status: Acute Assessment and Plan: H/o CVA. Continue ASA PT/OT during stay (6) Seizure disorder: Code(s): G40.909 - Epilepsy, unspecified, not intractable, without status epilepticus Status: Acute Assessment and Plan: No acute issues Continue home Keppra (7) Dementia: Code(s): F03.90 - Unspecified dementia without behavioral disturbance Status: Acute Assessment and Plan: Will continue with memantine Resumed Donepezil today (8) Hyperlipidemia: Code(s): E78.5 - Hyperlipidemia, unspecified Status: Acute Assessment and Plan: LFTs WNL will continue statin (9) Discharge planning issues: Code(s): Z02.9 - Encounter for administrative examinations, unspecified Status: Acute Assessment and Plan: CC states NH facility is unable to obtain patient's home medications over the weekend, thus will need to stay until Friday once they are able to access the pharmacy and obtain patient's medications. CC following Await further instructions from CC Subjective Date/time seen: 09/05/19 12:36 Interval history: Patient is a 74 yo M with history of CVA, dementia, and prior craniotomy who is here for treatment of PNA/Covid infection. Patient is a poor to fair historian. Today, he is alert and oriented to himself, year, and that he is in the hospital. He tells me he is feeling better today, he is eating more. No BMs, but declines a laxative at the moment. He denie
[2019-09-05] MEDS: levETIRAcetam 250 MG TABLET PO (13:11)
[2019-09-05 14:00] VITALS: BP 147/71; PULSE 78; RESP 16; TEMP 37.1; O2SAT 96
[2019-09-05 18:00] VITALS: BP 167/81; PULSE 70; RESP 18; TEMP 36.8; O2SAT 97
[2019-09-05] MEDS: ATORVASTATIN 20 MG TABLET PO (20:19)
[2019-09-05 22:00] VITALS: BP 134/72; PULSE 75; RESP 20; TEMP 36.8; O2SAT 95
[2019-09-06 02:00] VITALS: BP 151/74; PULSE 68; RESP 18; TEMP 36.9; O2SAT 97
[2019-09-06 06:00] VITALS: BP 124/76; PULSE 67; RESP 16; TEMP 36.7; O2SAT 97
[2019-09-06 06:16] LABS: Hematocrit 39.3 % (42.0-52.0); Hemoglobin 13.1 g/dL (14.0-18.0); Mean Corpuscular HGB Conc 33.3 g/dl (32-36); Mean Corpuscular Hemoglobin 27.4 pg (26-34); Mean Corpuscular Volume 82.2 fl (80-100); Mean Platelet Volume 8.6 fl (7.4-10.4); Platelet Count Result 287 k/mm3 (150-375); Red Blood Count 4.78 M/mm3 (4.6-6.20); Red Cell Distribution Width 11.8 % (11.5-14.5); White Blood Count 6.3 K/mm3 (4.5-10.0)
[2019-09-06 06:30] LABS: Blood Urea Nitrogen 15 mg/dL (9-20); CRP 8.3 mg/dL (<1.0); Calcium 9.6 mg/dL (8.4-10.2); Carbon Dioxide 26 mmol/L (22-30); Chloride 100 mmol/L (98-107); Estimated CRCL calculation 61 ml/min; Estimated Glomerular Filt Rate > 60; Glucose 111 mg/dL (75-110); Magnesium 2.1 mg/dL (1.6-2.3); Potassium 4.2 mmol/L (3.4-5.0); Sodium 133 mmol/L (137-145)
[2019-09-06] MEDS: DONEPEZIL HCL 10 MG TABLET PO (09:16)
[2019-09-06] MEDS: ASPIRIN 81 MG CHEWABLE TABLET PO (09:16)
[2019-09-06] MEDS: RIVAROXABAN 15 MG TABLET PO ×2 (09:17→17:34)
[2019-09-06] MEDS: levETIRAcetam 500 MG TABLET PO ×2 (09:17→17:34)
[2019-09-06] MEDS: THIAMINE HCL 100 MG TABLET PO (09:17)
[2019-09-06] MEDS: MEMANTINE 10 MG TABLET PO ×2 (09:17→17:35)
[2019-09-06] MEDS: CHOLECALCIFEROL 1,000 UNIT TABLET 1000 UNITS PO (09:18)
[2019-09-06 10:00] VITALS: BP 127/74; PULSE 74; RESP 16; TEMP 36.8; O2SAT 99
[2019-09-06] MEDS: levETIRAcetam 250 MG TABLET PO (12:47)
[2019-09-06 13:27] LABS: Pneumococcal Antigen Urine Not Detected (Not Detected)
[2019-09-06 14:00] VITALS: BP 131/78; PULSE 71; RESP 16; TEMP 36.9; O2SAT 100
--- NOTE | 2019-09-06 16:15 | PM.DS ---
DS: Admitting Diagnosis Admitting Diagnosis Admitting Diagnosis: COVID-19 DS: Discharge Diagnosis Discharge Diagnosis (1) Pneumonia: Qualifiers: Laterality: bilateral Lung location: unspecified part of lung Pneumonia type: due to unspecified organism Qualified Code(s): J18.9 - Pneumonia, unspecified organism Code(s): J18.9 - Pneumonia, unspecified organism Status: Acute Assessment and Plan: COVID testing positive. Likely pneumonia is viral (COVID) in nature with less likely bacterial co-infection. Patient is currently satting in upper 90s on RA. Afebrile for >24 hours;VSS. BCx negative to date. Urine Legionella antigen pending and pneumococcal antigen not detected. Patient much more alert/active today, eating more today, working with PT/OT Since COVID testing positive, bacterial co-infection unlikely, will continue to hold antibiotic therapy Supportive care with Tylenol and Mucinex Will discharge to [facility] for SNF per rec (2) COVID-19 virus infection: Code(s): U07.1 - COVID-19 Status: Acute Assessment and Plan: Covid positive. please see above a/p (3) Dvt femoral (deep venous thrombosis): Code(s): I82.419 - Acute embolism and thrombosis of unspecified femoral vein Status: Acute Assessment and Plan: DVT found on left femoral, profunda veins. Conitue Xarelto therapeutic dose of 15 mg BID x 21 days (through 09/23) and then 20 mg every evening thereafter (start 09/24) Further care per [place] physician (4) Altered mental status: Qualifiers: Altered mental status type: unspecified Qualified Code(s): R41.82 - Altered mental status, unspecified Code(s): R41.82 - Altered mental status, unspecified Status: Acute Assessment and Plan: Encephalopathy complicating underlying dementia. Likely due to acute infection. Appears to have improved/resolved Will treat underlying infection with supportive care as above and continue to monitor Continue PT/OT Encourage PO intake (5) CVA (cerebral vascular accident): Code(s): I63.9 - Cerebral infarction, unspecified Status: Acute Assessment and Plan: H/o CVA. Continue ASA PT/OT during stay (6) Seizure disorder: Code(s): G40.909 - Epilepsy, unspecified, not intractable, without status epilepticus Status: Acute Assessment and Plan: No acute issues Continue home Keppra (7) Dementia: Code(s): F03.90 - Unspecified dementia without behavioral disturbance Status: Acute Assessment and Plan: Will continue with memantine and donepezil (8) Hyperlipidemia: Code(s): E78.5 - Hyperlipidemia, unspecified Status: Acute Assessment and Plan: LFTs WNL will continue statin (9) Discharge planning issues: Code(s): Z02.9 - Encounter for administrative examinations, unspecified Status: Acute Assessment and Plan: CC states NH facility is unable to obtain patient's home medications over the weekend, thus will need to stay until Friday once they are able to access the pharmacy and obtain patient's medications. CC following Discharge today to [facility] for SNF per instructions DS: Summary Hospital Course Reason for hospitalization: AMS, COVID positive, DVT Hospital Course: Patient is a 74 yo M with history of CVA, dementia, and prior craniotomy who presented to the ER from [facility] via EMS due to not acting like himself for the previous week. While in the ED, patient was febrile with temp of 100.1 and CXR showed mild opacities in the right mid and left l
[2019-09-06 17:05] LABS: Legionella pneumophila Ag Ur Not Detected (Not Detected)
[2019-09-06 18:00] VITALS: BP 135/72; PULSE 73; RESP 16; TEMP 37.1; O2SAT 100
== END 2019-09-06 20:20 | DRG 177 ==
LOC: ANHED 20:44 → ANH3MEDSUR 20:53
PROVIDERS: Physician Assistant; Admitting Provider Internal Medicine; Emergency Provider Emergency Medicine; Visit Provider Family Medicine
DX: U07.1 COVID-19 (principal); J12.89 Other viral pneumonia; G93.40 Encephalopathy, unspecified; I82.412 Acute embolism and thrombosis of left femoral vein; F03.90 Unspecified dementia, unspecified severity, without behavioral disturbance, psychotic disturbance, mood disturbance, and anxiety; R56.9 Unspecified convulsions; E78.5 Hyperlipidemia, unspecified; Z86.73 Personal history of transient ischemic attack (TIA), and cerebral infarction without residual deficits
CPT/HCPCS: 36415; 51701; 70450; 71045; 80048; 80053; 81001; 82728; 83605; 83615; 83735; 85025; 85027; 85380; 85610; 86140; 87040; 87449; 87635; 87899; 93005; 93970; 96365; 96366; 96367; 96372; 97110; 97116; 97161; 97165; 97530; 99285; A9270; C9803; G0378; J0456; J0696; J1650; J7030; J7060; U0003